=== PATIENT | female | born 1965 | race Hispanic/Latino ===

== ENCOUNTER 2017-07-02 10:00 | Day surgery (SDC) | payer OTHER ==
[~2017-07-02] VITALS: Ht 160 cm; Wt 59.4 kg
[~2017-07-02 10:00] MED LIST: NAPROSYN250 MG PO; SINGULAIR10 MG PO; ULTRAM50 MG PO; ZESTRIL20 MG PO
== END 2017-07-02 11:13 | disposition home or self-care (01) ==
LOC: PAIN 10:00 → SDC 10:45 → PAIN 11:13
DX: M47.812 Spondylosis without myelopathy or radiculopathy, cervical region (principal); M54.2 Cervicalgia; G89.29 Other chronic pain; M47.816 Spondylosis without myelopathy or radiculopathy, lumbar region; M79.1 Myalgia; K21.9 Gastro-esophageal reflux disease without esophagitis; I10 Essential (primary) hypertension; Z79.891 Long term (current) use of opiate analgesic
CPT/HCPCS: J1030; J2250; J3010; S0020

== ENCOUNTER 2017-08-13 10:31 | Day surgery (SDC) | payer OTHER ==
[~2017-08-13] VITALS: Ht 160 cm; Wt 59.9 kg
[~2017-08-13 10:31] MED LIST changes: +ASCORBIC ACID500 M3 PO; +CALCIUM-MAG-ZI1 EACH PO
== END 2017-08-13 12:44 | disposition home or self-care (01) ==
LOC: PAIN 10:31 → SDC 11:00 → PAIN 12:44
DX: M47.812 Spondylosis without myelopathy or radiculopathy, cervical region (principal); M54.2 Cervicalgia; G89.29 Other chronic pain; M47.816 Spondylosis without myelopathy or radiculopathy, lumbar region; I10 Essential (primary) hypertension; M79.1 Myalgia; K21.9 Gastro-esophageal reflux disease without esophagitis; Z79.891 Long term (current) use of opiate analgesic
CPT/HCPCS: J1030; J2250; J3010; S0020

== ENCOUNTER 2017-08-20 10:24 | Day surgery (SDC) | payer OTHER ==
[~2017-08-20] VITALS: Ht 160 cm; Wt 59.9 kg
== END 2017-08-20 12:10 | disposition home or self-care (01) ==
LOC: PAIN 10:24 → SDC 11:00 → PAIN 12:10
DX: M47.812 Spondylosis without myelopathy or radiculopathy, cervical region (principal); M54.2 Cervicalgia; G89.29 Other chronic pain; M47.816 Spondylosis without myelopathy or radiculopathy, lumbar region; K21.9 Gastro-esophageal reflux disease without esophagitis; M79.1 Myalgia; I10 Essential (primary) hypertension
CPT/HCPCS: J1030; J2250; J3010; S0020

== ENCOUNTER → 2018-02-07 | Outpatient (CLI) | payer OTHER | END | disposition home or self-care (01) | DX: K21.9 Gastro-esophageal reflux disease without esophagitis (principal) | CPT/HCPCS: 92611 GN; G8996 GN; G8997 GN; G8998 GN ==

== ENCOUNTER 2018-06-02 15:35 | Emergency (ER) | payer OTHER ==
[~2018-06-02] VITALS: Ht 160 cm; Wt 63.0 kg
[2018-06-02] MEDS ORDERED: GUAIFENESIN600 M1 PO (16:36)
[2018-06-02 16:50] VITALS: BP 151/85
== END 2018-06-02 16:56 | disposition home or self-care (01) ==
LOC: EME 15:35
DX: H92.01 Otalgia, right ear (principal); H93.11 Tinnitus, right ear; J06.9 Acute upper respiratory infection, unspecified; K21.9 Gastro-esophageal reflux disease without esophagitis; Z90.49 Acquired absence of other specified parts of digestive tract
CPT/HCPCS: 99281; 99284